=== PATIENT | female | born 1975 | race African-American/Black ===

== ENCOUNTER 2016-10-19 07:11 | Emergency (ER) | payer MEDICAID ==
[~2016-10-19] VITALS: Ht 180.3 cm; Wt 112.0 kg
[2016-10-19] MEDS ORDERED: UNKNOWN ABX (07:26)
[2016-10-19] MEDS ORDERED: FAMOTIDINE 20MG/2ML VIAL IV STA (08:07)
[2016-10-19] MEDS ORDERED: ONDANSETRON HCL 4MG/2ML VIAL IV STA (08:07)
[2016-10-19 08:20] LABS: BASOPHILS % 0.6 % (0.0-2.0); EOSINOPHILS % 0.7 % (0.0-5.0); HEMATOCRIT. 45.4 % (36.0-48.0); HEMOGLOBIN. 15.1 g/dL (12.0-16.0); LYMPHOCYTES % 22.3 % (20.0-50.0); MEAN CORPUSCULAR HEMOGLOBIN 26.7 pg (28.0-32.0); MEAN CORPUSCULAR HGB CONC 33.2 g/dL (31.0-37.0); MEAN CORPUSCULAR VOLUME 80.4 fL (81.0-99.0); MEAN PLATELET VOLUME 8.8 fl (7.4-10.4); NEUTROPHILS % 66.4 % (40.0-76.0); PLATELET 353 x1000/uL (130-400); RED BLOOD CELL COUNT 5.64 mill/uL (4.2-5.4); RED CELL DISTRIBUTION WIDTH 14.1 % (11.6-14.6); WHITE BLOOD COUNT 13.4 x1000/uL (4.5-11.0)
[2016-10-19] MEDS ORDERED: SODIUM CHLORIDE 0.9% 1,000 ML IV ONE (08:23)
[2016-10-19 08:30] LABS: CHLORIDE 97 mEq/L (98-107); INDEX HEMOLYSI 1 (1-3); INDEX ICTERIC 1 (1-4); INDEX LIPEMIC 1 (1-3)
[2016-10-19 08:33] LABS: ALBUMIN 4.3 g/dL (3.4-5.0); ANION GAP 13; CALCIUM 9.1 mg/dL (8.5-10.1); CARBON DIOXIDE 31 mEq/L (21-32); LIPASE 257 IU/L (73-393); UREA NITROGEN BLOOD 13 mg/dL (7-21)
[2016-10-19 08:37] LABS: ALANINE AMINOTRANSFERASE 58 IU/L (13-61); eGFR > 60 mL/min (>60)
[2016-10-19] MEDS ORDERED: FOLIC ACID 1 MG, THIAMINE HCL 100 MG, MVI, ADULT NO.1 10 ML in DEXTROSE 5% WATER 1,000 ML IV ONE ×4 (09:15)
[2016-10-19 09:38] LABS: CLARITY URINE CLOUDY (CLEAR); COLOR URINE YELLOW (YELLOW); GLUCOSE URINE NEGATIVE (NEGATIVE); KETONES URINE NEGATIVE (NEGATIVE); LEUKOCYTE ESTERASE URINE 3+ (NEGATIVE); NITRITE URINE NEGATIVE (NEGATIVE); OCCULT BLOOD URINE TRACE (NEGATIVE); PROTEIN URINE NEGATIVE (NEGATIVE); SPECIFIC GRAVITY URINE 1.016 (1.005-1.030)
[2016-10-19 09:57] LABS: SQUAMOUS EPITHELIAL CELL URINE 3+ /lpf (RARE/1+)
[2016-10-19 09:58] LABS: BACTERIA URINE 3+
[2016-10-19 09:59] LABS: WBC URINE 50-100 /hpf (0-2)
[2016-10-19 10:01] LABS: RBC URINE 15-25 /hpf (0-2)
[2016-10-19] MEDS ORDERED: CEFTRIAXONE 1 G PREMIX 50 ML IV ONE (11:00)
[2016-10-19] MEDS ORDERED: AMLODIPINE 2.5MG TABLET PO ONE (12:30)
[2016-10-19 14:10] VITALS: BP 159/105
== END 2016-10-19 14:12 | disposition home or self-care (01) ==
LOC: ER 08:46
DX: N39.0 Urinary tract infection, site not specified (principal); R11.10 Vomiting, unspecified; D72.829 Elevated white blood cell count, unspecified; I10 Essential (primary) hypertension; E66.9 Obesity, unspecified; Z68.34 Body mass index [BMI] 34.0-34.9, adult; Z88.6 Allergy status to analgesic agent
CPT/HCPCS: 36415; 80053; 81001; 83690; 85025; 96361; 96365; 96366; 96367; 96375; 99285; J0696; J2405; J3411; J3490; J7070; Z7610; J7030